=== PATIENT | female | born 1955 | race Caucasian/White ===

== ENCOUNTER 2016-10-26 23:52 | Inpatient (IN) | payer MEDICARE, OTHER ==
[~2016-10-26] VITALS: Ht 157.5 cm; Wt 103.2 kg
[~2016-10-26 23:52] MED LIST: AMLO-218 PO; ASPI-664 PO; ATOR20TA38 PO; BEN25 PO; CLOP75TA27 PO; LANT3I SC; METO-448 PO; MTF1000T PO
[2016-10-27] VITALS (11 sets, daily range): BP systolic 113–139; BP diastolic 60–73; PULSE 87–91; RESP 15–19; TEMP 99; Ht 157.5 cm; Wt 103.2 kg
--- NOTE | 2016-10-27 00:58 | ERA ---
ER Documentation Chief Complaint Date/Time DATE: 10/27/16 TIME: 00:57 Chief Complaint left chest pain radiating to left upper back,SOB,palpitation HPI The patient is a 60-year-old female, presenting to the ER because of left-sided chest pain radiating to the left upper back, dyspnea, palpitation, subjective fever, non-pleuritic cough for the last 12 days, worse for the last couple days. She denies any neck pain, chest pain with exertion of vomiting or diaphoresis, abdominal pain, vomiting, dysuria, diarrhea, complains of chronic bilateral leg swelling. She does not smoke or drink Past medical history: Hypertension, dyslipidemia, diabetes mellitus, CAD, anemia Past surgical history: Stent PCI, cholecystectomy ROS All systems reviewed and are negative except as per history of present illness. Medications Home Meds Active Scripts Levofloxacin* (Levaquin*) 750 Mg Tablet, 750 MG PO DAILY@06 for 4 Days, #4 TAB Prov:KAYEDN ABAD MD 10/28/16 Metoprolol Tartrate* (Lopressor*) 25 Mg Tab, 50 MG PO BID for 30 Days, TAB Prov:TERRY FULLER 06/24/14 Diphenhydramine Hcl* (Benadryl*) 25 Mg Cap, 25 MG PO Q6H Y for ITCHING, #14 CAP Prov:TERRY FULLER 06/24/14 Atorvastatin Calcium* (Atorvastatin Calcium*) 20 Mg Tab, 40 MG PO HS for 30 Days Prov:TERRY FULLER 06/24/14 Clopidogrel Bisulfate (Clopidogrel) 75 Mg Tab, 75 MG PO DAILY for 30 Days Prov:TERRY FULLER 06/24/14 Insulin Glargine* (Lantus*) 100 Unit/Ml Soln, 10 UNIT SC HS for 30 Days Prov:TERRY FULLER 06/24/14 Reported Medications Liraglutide (Victoza 3-Marcel) 0.6 Mg/0.1 Ml Pen.injctr, 0.6 MG SQ DAILY, SYR 10/27/16 Dexlansoprazole (Dexilant) 60 Mg Cap., 60 MG PO DAILY, #30 CAP 10/27/16 Losartan-Hydrochlorothiazide (Losartan-HCTZ) 50-12.5 Mg Tab, 1 TAB PO DAILY, TAB 10/27/16 Zolpidem Tartrate* (Zolpidem Tartrate*) 10 Mg Tablet, 10 MG PO QHS Y for INSOMNIA, #30 TAB 10/27/16 Ibuprofen* (Ibuprofen*) 800 Mg Tab, 800 MG PO TID, TAB 10/27/16 Buspirone Hcl* (Buspar*) 5 Mg Tab, 5 MG PO BID, TAB 10/27/16 Alprazolam* (Alprazolam*) 0.5 Mg Tablet, 0.5 MG PO Q8H Y for ANXIETY, TAB 10/27/16 Glipizide* (Glipizide*) 5 Mg Tablet, 5 MG PO DAILY, TAB 10/27/16 Nitroglycerin* (Nitrostat*) 0.4 Mg Tab.subl, 0.4 MG SL Q5MIN Y for CHEST PAIN, BOTTLE 10/27/16 Insulin Glargine* (Lantus*) 100 Unit/Ml Soln, 20 UNIT SC QHS, #1 VIAL 10/27/16 Aspirin* (Aspirin* EC) 81 Mg Tablet.dr, 81 MG PO DAILY, TAB 06/21/14 Amlodipine Besylate* (Norvasc*) 10 Mg Tablet, 10 MG PO DAILY, TAB 06/21/14 Metformin* (Glucophage*) 1,000 Mg Tablet, 1000 MG PO BID, TAB 06/21/14 Allergies Allergies: Coded Allergies: Penicillins (Unverified Allergy, Unknown, 10/27/16) PMhx/Soc History of Surgery: Yes (CHOLYCYSTECTOMY, CATARACT ) Anesthesia Reaction: No Hx Neurological Disorder: No Hx Respiratory Disorders: No Hx Cardiac Disorders: Yes (HTN) Hx Psychiatric Problems: No Hx Miscellaneous Medical Probl: No Hx Alcohol Use: No Hx Substance Use: No Hx Tobacco Use: No Physical Exam Vitals Vital Signs Date Time Temp Pulse Resp B/P Pulse Ox O2 Delivery O2 Flow Rate FiO2 10/27/16 01:07 99.2 97 22 132/82 97 Nasal Cannula 2.0 10/27/16 00:55 Nasal Cannula 2 10/27/16 00:06 99.0 98 18 138/92 90 Physical Exam Const: No acute distress. Head: Atraumatic. Eyes: Normal Conjunctiva. ENT: Normal External Ears, Nose and Mouth. Neck: Full range of motion. No meningismus. Resp: Left mid crackles, no wheezes Cardio: Regular rate and rhythm. Abd: Soft, non distended, normal bowel sounds, non tender. Skin: No petechiae or rashes. Back: No midline or flank tenderness. Ext: No cyanosis, or edema. Neur: Awake and alert. No focal deficit Psych: Normal Mood and Affect. Result Diagram: 10/28/16 0617 10/27/16 0100 Results 24 hrs Laboratory Tests Test 10/27/16 00:59 10/27/16 01:00 Bedside Glucose 162mg/dL White Blood Count 12.710^3/ul Red Blood Count 4.1310^6/ul Hemoglobin 11.6g/dl Hematocrit 35.2% Mean Corpuscular Volume 85.2fl Mean Corpuscular Hemoglobin 28.1pg Mean Corpuscular Hemoglobin Concent 33.0g/dl Red Cell Distribution Width 13.2% Platelet Count 94078^3/UL Mean Platelet Volume 10.3fl Neutrophils % 63.3% Lymphocytes % 22.7% Monocytes % 6.9% Eosinophils % 5.4% Basophils % 0.6% Nucleated Red Blood Cells % 0.0/100WBC Neutrophils # 8.010^3/ul Lymphocytes # 2.910^3/ul Monocytes # 0.910^3/ul Eosinophils # 0.710^3/ul Basophils # 0.110^3/ul Nucleated Red Blood Cells # 0.010^3/ul Prothrombin Time 13.3Sec Prothrombin Time Ratio 1.0 INR International Normalized Ratio 1.01 Activated Partial Thromboplast Time 28.9Sec Sodium Level 142mmol/L Potassium Level 4.2mmol/L Chloride Level 102mmol/L Carbon Dioxide Level 30mmol/L Anion Gap 14 Blood Urea Nitrogen 11mg/dl Creatinine 0.70mg/dl Glucose Level 177mg/dl Lactic Acid Level 0.9mmol/L Calcium Level 9.1mg/dl Total Bilirubin 0.3mg/dl Direct Bilirubin 0.00mg/dl Indirect Bilirubin 0.3mg/dl Aspartate Amino Transf (AST/SGOT) 14IU/L Alanine Aminotransferase (ALT/SGPT) 28IU/L Alkaline Phosphatase 118IU/L Troponin I < 0.012ng/ml B-Type Natriuretic Peptide 91PG/ML Total Protein 8.0g/dl Albumin 4.6g/dl Globulin 3.40g/dl Albumin/Globulin Ratio 1.35 Current Medications Medications (Trade) Dose Ordered Sig/Diamond Route PRN Reason Start Time Stop Time Status Last Admin Dose Admin Aspirin 325 mg 325 mg ONCE ONCE PO 10/27/16 02:30 10/27/16 02:31 DC 10/27/16 02:42 Levofloxacin/ Dextrose (Levaquin 750 Mg/ D5W 150 ml (Pmx)) 150 ml @ 100 mls/hr ONCE ONCE IVPB 10/27/16 02:30 10/27/16 03:59 DC 10/27/16 02:42 Procedures/MDM EKG: Read by emergency physician Rate/Rhythm: Normal Sinus Rhythm 98 beats/min QRS, ST, T-waves: No ST elevation, no T inversion Impression: Normal EKG [place] [id number] Radiology Main Line: [phone] DIAGNOSTIC IMAGING REPORT Patient: KHUSHBU LEMUS : 1955 Age: 60 Sex: F MR #: [id number] DOS: 10/27/16 0104 Ordering MD: DAVID BORRERO MD Location: E/R Room/Bed: PROCEDURE: XR Chest. CLINICAL INDICATION: Chest pain TECHNIQUE: AP Portable chest. COMPARISON: 06/21/2014 FINDINGS: The cardiomediastinal silhouette is normal. There is some minimal patchy opacity in the peripheral left mid chest. The osseous structures are unremarkable. IMPRESSION: Minimal patchy airspace opacity in the peripheral left mid chest likely due to mild atelectasis or pneumonia. Follow-up after appropriate medical treatment is advised. RPTAT: HIKT .Russell Cotto MD, MD Date Time Electronically viewed and signed by .Russell Cotto MD, on 10/27/2016 02:24 .T/ CC: DAVID BORRERO MD MEDICAL MAKING DECISION: The patient is a 60-year-old female with multiple cardiac risk factors, presenting with acute pneumonia, acute respiratory failure with low O2 saturation. She was treated with Levaquin IV for acute pneumonia, aspirin 325 mg p.o. for acute chest pain and supplemental oxygen with good response The differential diagnoses considered include but are not limited to acute coronary syndrome, acute myocardial infarction, pericarditis, pulmonary embolism , aortic dissection, pneumonia, pleural effusion, pneumothorax, GERD, chest wall pain. Critical Care: Time: 35 minutes excluding all billable procedures. Treatments/Evaluations: Close monitoring and treatment of unstable vital signs, cardiorespiratory, and neurologic status, while maintaining tight balance of fluid, respiratory, and cardiac interventions. Departure Diagnosis: Primary Impression: Acute respiratory failure Additional Impressions: Chest pain Pneumonia Anemia Condition: Stable Comments I discussed the findings with the patient. I discussed the patient with the on- call hospitalist Dr. Mayes who was made aware of the lab, the treatment, the patient condition. The patient is admitted to telemetry DAVID BORRERO MD Oct 27, 2016 00:58
[2016-10-27 01:22] LABS: ADD SCAN DIFF NO
[2016-10-27 01:24] LABS: BASOPHIL # 0.1 10^3/ul (0.0-0.1); BASOPHILS % 0.6 % (0.0-2.0); EOSINOPHILS # 0.7 10^3/ul (0.0-0.5); EOSINOPHILS % 5.4 % (0.0-7.0); HEMATOCRIT 35.2 % (37.0-47.0); HEMOGLOBIN 11.6 g/dl (12.0-16.0); LYMPHOCYTES # 2.9 10^3/ul (0.8-2.9); LYMPHOCYTES % 22.7 % (15.0-51.0); MEAN CORPUSCULAR HEMOGLOBIN 28.1 pg (29.0-33.0); MEAN CORPUSCULAR VOLUME 85.2 fl (82.0-101.0); MEAN PLATELET VOLUME 10.3 fl (7.4-10.4); MONOCYTE # 0.9 10^3/ul (0.3-0.9); MONOCYTES % 6.9 % (0.0-11.0); NEUTROPHILS % 63.3 % (39.0-77.0); PLATELET COUNT 409 10^3/UL (140-415); RED BLOOD COUNT 4.13 10^6/ul (4.20-5.40); RED CELL DISTRIBUTION WIDTH 13.2 % (11.5-14.5); WHITE BLOOD COUNT 12.7 10^3/ul (4.8-10.8)
[2016-10-27 01:50] LABS: INR 1.01; PROTIME 13.3 Sec (12.2-14.2)
[2016-10-27 01:51] LABS: PARTIAL THROMBOPLASTIN TIME 28.9 Sec (25.0-35.0)
[2016-10-27] MEDS ORDERED: BUS5 PO (01:52)
[2016-10-27] MEDS ORDERED: LANT3I SC (01:52)
[2016-10-27] MEDS ORDERED: LIRA0.6P2 SQ (01:52)
[2016-10-27] MEDS ORDERED: DEXL60CA2 PO (01:52)
[2016-10-27] MEDS ORDERED: GLIP5TAB13 PO (01:52)
[2016-10-27] MEDS ORDERED: IBUP800T25 PO (01:52)
[2016-10-27] MEDS ORDERED: LOSA1TAB19 PO (01:52)
[2016-10-27] MEDS ORDERED: ALPR0.5T6 PO (01:52)
[2016-10-27] MEDS ORDERED: NIT4 SL (01:52)
[2016-10-27] MEDS ORDERED: ZOLP10TA5 PO (01:52)
[2016-10-27 01:56] LABS: ALANINE AMINOTRANSFERASE 28 IU/L (13-69); ALBUMIN 4.6 g/dl (3.3-4.9); ALBUMIN/GLOBULIN RATIO 1.35; ALKALINE PHOSPHATASE 118 IU/L (42-121); ANION GAP 14 (8-16); ASPARTATE AMINO TRANSFERASE 14 IU/L (15-46); BILIRUBIN,INDIRECT 0.3 mg/dl (0-1.1); BILIRUBIN,TOTAL 0.3 mg/dl (0.2-1.3); BLOOD UREA NITROGEN 11 mg/dl (7-20); CALCIUM 9.1 mg/dl (8.4-10.2); CARBON DIOXIDE 30 mmol/L (21-31); CHLORIDE 102 mmol/L (97-110); GLUCOSE 177 mg/dl (70-220); POTASSIUM 4.2 mmol/L (3.5-5.1); SODIUM 142 mmol/L (135-144)
[2016-10-27 02:07] LABS: B-TYPE NATRIURETIC PEPTIDE 91 PG/ML (0-125)
[2016-10-27 02:08] LABS: TROPONIN-I < 0.012 ng/ml (0.00-0.12)
--- NOTE | 2016-10-27 02:25 | RADRPT ---
PROCEDURE: XR Chest. CLINICAL INDICATION: Chest pain TECHNIQUE: AP Portable chest. COMPARISON: 06/21/2014 FINDINGS: The cardiomediastinal silhouette is normal. There is some minimal patchy opacity in the peripheral left mid chest. The osseous structures are unremarkable. IMPRESSION: Minimal patchy airspace opacity in the peripheral left mid chest likely due to mild atelectasis or p neumonia. Follow-up after appropriate medical treatment is advised. RPTAT: HIKT .Russell Cotto MD, Date Time Electronically viewed and signed by .Russell Cotto MD, on 10/27/2016 02:24 .T/
[2016-10-27] MEDS ORDERED: LEVOFLOXACIN 750MG/D5W (PMX) 150 ML IVPB ONE (02:30)
[2016-10-27] MEDS ORDERED: ASPIRIN 325 MG TAB PO ONE (02:30)
[2016-10-27] MEDS ORDERED: NACL 0.9% 3 ML SYG IV SCH (03:30)
[2016-10-27] MEDS ORDERED: GLUCOSE GEL 15 GRAM TUBE PO PRN ×2 (03:30)
[2016-10-27] MEDS ORDERED: GLUCAGON 1 MG INJ IM PRN (03:30)
[2016-10-27] MEDS ORDERED: DIPHENHYDRAMINE 25 MG CAP PO PRN (03:30)
[2016-10-27] MEDS ORDERED: DEXTROSE 50% 50 ML SYRINGE IV PRN ×2 (03:30)
[2016-10-27] MEDS ORDERED: ALPRAZOLAM 0.25 MG TAB PO PRN (03:30)
[2016-10-27] MEDS ORDERED: ZOLPIDEM 5 MG TAB PO PRN (03:30)
[2016-10-27] MEDS ORDERED: GLUCOSE GEL 15 GRAM TUBE BUCCAL PRN (03:30)
[2016-10-27] MEDS: PANTOPRAZOLE (EC) 40 MG TAB PO SCH (07:46)
[2016-10-27] MEDS: INSULIN ASPART [NOVOLOG] 3 ML PEN SC SCH ×4 (07:47→21:13)
--- NOTE | 2016-10-27 08:16 | HP ---
Date/Time of Note Date/Time of Note DATE: 10/27/16 TIME: 08:03 Assessment/Plan VTE Prophylaxis VTE Prophylaxis Intervention: SCD's Assessment/Plan Chief Complaint/Hosp Course This is a 60-year-old female being admitted to the telemetry floor for: #1 chest pain: Rule out ACS versus pneumonia. At the current time trend troponins 3, echocardiogram. Consider cardiology consult. Patient is on medications to reflect possible coronary artery disease however patient is unsure of her history at this time. #2 Community acquired pneumonia: Continue IV Levaquin #3 questionable coronary artery disease: Based on patient's medication history does appear the patient has coronary artery disease we will continue current medications at this time #4 hypertension: Continue home medications #5 diabetes: Check A1c, will hold medications and put patient on insulin sliding scale #6 anxiety: Continue home Ativan #7: GERD: On Protonix #8 DVT and GI prophylaxis: SCDs, Protonix Problems: HPI/ROS Admit Date/Time Admit Date/Time Oct 27, 2016 at 02:40 Hx of Present Illness Chief complaint: Chest pain, cough This is a 60-year-old female who presents to the hospital with 1 day of chest pain. Patient states that she experiencing left-sided chest pain radiating to the back. She also states that she was short of breath. She also states has been coughing nonproductive. Reports subjective fevers. Denies any nausea vomiting or diarrhea. Allergies: Penicillin Medications: See KOKI VARELA Const: As per HPI Eyes : No pain discharge or redness or change in visual acuity ENT: No pain, sore throat, congestion, congestion, dysphagia or discharge Respiratory: As per HPI Cardiovascular: As per HPI GI : no change in appetite, abdominal pain, nausea, vomiting, diarrhea, constipation, or change in the color his stool Genitourinary: No dysuria, hematuria, flank pain , discharge or CVA tenderness Musculoskeletal: No joint pain, back pain, neck pain, restricted range of motion in neck or joints Skin: No rash, bruising or hives Neuro: No headache, dizziness, syncope, seizure, focal weakness Endocrine: No polyuria, polydipsia, temperature intolerance Psych: No hallucination, depression, anxiety or suicidal ideation PMH/Family/Social Past Medical History Hypertension diabetes, CAD ?, GERD, anxiety Past Surgical History Cholecystectomy Family History Significant Family History: no pertinent family hx Social History Alcohol Use: none Smoking Status: Never smoker Drug Use: none Exam/Review of Systems Vital Signs Vitals Vital Signs Date Time Temp Pulse Resp B/P Pulse Ox O2 Delivery O2 Flow Rate FiO2 10/27/16 07:21 98.0 92 18 129/60 92 10/27/16 05:30 Nasal Cannula 2.0 10/27/16 03:00 30 Exam Exam General: Patient is well-developed well-nourished The patient is alert oriented -3 lying comfortably in bed. HEENT: Atraumatic, normocephalic. The pupils are equal, round and reactive. Extraocular motor are intact Neck: Supple with full range of motion. No rigidity or meningismus Chest: Nontender Lungs: Clear to auscultation bilaterally no crackles rales or wheezing Heart: Normal S1-S2, Regular rhythm and rate. No murmur, S3, or S4 Abdomen: Soft , nontender, nondistended , bowel sounds are present. No guarding no rebound tenderness , No masses or organomegaly. No costovertebral temporal angle mass Extremities: Normal to inspection, no edema no cyanosis Neurologic: Normal mental status, speech normal, cranial nerves II through XII are intact, motor and sensory are intact, no focal weakness Additional Comments PROCEDURE: XR Chest. CLINICAL INDICATION: Chest pain TECHNIQUE: AP Portable chest. COMPARISON: 06/21/2014 FINDINGS: The cardiomediastinal silhouette is normal. There is some minimal patchy opacity in the peripheral left mid chest. The osseous structures are unremarkable. IMPRESSION: Minimal patchy airspace opacity in the peripheral left mid chest likely due to mild atelectasis or pneumonia. Follow-up after appropriate medical treatment is advised. RPTAT: HIKT .Russell Cotto MD, MD Date Time Electronically viewed and signed by .Russell Cotto MD, MD on 10/27/2016 02:24 Labs Result Diagram: 10/27/16 0100 10/27/16 0100 Medications Medications Current Medications Alprazolam (Xanax) 0.5 mg Q8H PRN PO ANXIETY; Start 10/27/16 at 03:30 Amlodipine Besylate (Norvasc) 10 mg DAILY PO ; Start 10/27/16 at 09:00 Aspirin (Halfprin) 81 mg DAILY PO ; Start 10/27/16 at 09:00 Atorvastatin Calcium (Lipitor) 40 mg HS PO ; Start 10/27/16 at 21:00 Buspirone HCl (Buspar) 5 mg BID PO ; Start 10/27/16 at 09:00 Clopidogrel Bisulfate (plaVIX) 75 mg DAILY PO ; Start 10/27/16 at 09:00 Diphenhydramine HCl (Benadryl) 25 mg Q6H PRN PO ITCHING; Start 10/27/16 at 03: 30 Metoprolol Tartrate (Lopressor) 50 mg BID PO ; Start 10/27/16 at 09:00 Zolpidem Tartrate (Ambien) 10 mg QHS PRN PO INSOMNIA; Start 10/27/16 at 03:30 Pantoprazole 40 mg 40 mg DAILY@06 PO Last administered on 10/27/16t 07:46; Admin Dose 40 MG; Start 10/27/16 at 06:00 Levofloxacin/ Dextrose (Levaquin 750 Mg/ D5W 150 ml (Pmx)) 150 ml @ 100 mls/hr Q24H IVPB ; Start 10/28/16 at 02:30 Miscellaneous Information 1 ea NOTE XX ; Start 10/27/16 at 03:30 Glucose (Glutose) 15 gm Q15M PRN PO DECREASED GLUCOSE; Start 10/27/16 at 03:30 Glucose (Glutose) 22.5 gm Q15M PRN PO DECREASED GLUCOSE; Start 10/27/16 at 03: 30 Dextrose (D50w Syringe) 25 ml Q15M PRN IV DECREASED GLUCOSE; Start 10/27/16 at 03:30 Dextrose (D50w Syringe) 50 ml Q15M PRN IV DECREASED GLUCOSE; Start 10/27/16 at 03:30 Glucagon (Glucagen) 1 mg Q15M PRN IM DECREASED GLUCOSE; Start 10/27/16 at 03:30 Glucose (Glutose) 15 gm Q15M PRN BUCCAL DECREASED GLUCOSE; Start 10/27/16 at 03 :30 Diagnostic Test (Pha) (Accu-Chek) 1 ea 02 XX ; Start 10/28/16 at 02:00 Losartan Potassium (Cozaar) 50 mg DAILY PO ; Start 10/27/16 at 09:00 Hydrochlorothiazide (Hydrochlorothiazide) 12.5 mg DAILY PO ; Start 10/27/16 at 09:00 LUIS NIEVES Oct 27, 2016 08:14
[2016-10-27] MEDS ORDERED: NON-FORMULARY/PATIENT OWN MED (Losartan-Hydrochlorothiazide (Losartan-HCTZ) 1 TAB) PO SCH (09:00)
[2016-10-27] MEDS: CLOPIDOGREL 75 MG TAB PO SCH (09:04)
[2016-10-27] MEDS: LOSARTAN 50 MG TAB PO SCH (09:04)
[2016-10-27] MEDS: ASPIRIN (EC) 81 MG TAB PO SCH (09:04)
[2016-10-27] MEDS: BUSPIRONE 5 MG TAB PO SCH ×2 (09:04→20:59)
[2016-10-27] MEDS: AMLODIPINE 10 MG TAB PO SCH (09:05)
[2016-10-27] MEDS: HYDROCHLOROTHIAZIDE 12.5 MG CAP PO SCH (09:05)
[2016-10-27] MEDS: METOPROLOL 25 MG TAB PO SCH ×2 (09:07→20:59)
--- NOTE | 2016-10-27 11:50 | PN ---
Date/Time of Note Date/Time of Note DATE: 10/27/16 TIME: 11:48 Assessment/Plan VTE Prophylaxis VTE Prophylaxis Intervention: SCD's Assessment/Plan Assessment/Plan 60 yo F with pmhx CAD, DM2, HTN, HL, obesity here with SOB, leukocytosis and small pulm infiltrate concerning for community acquired pneumonia #pneumonia: unclear if bacteria or viral in origin -cont levoflox, convert to PO -RVP, strep urine Ag, sputum culture -wean O2 as tolerate #chest pain: suspect 2/2 pneumonia though given CAD hx will proceed with ACS r/o -cont troponin and tele monitoring #chronic medical problems (HTN, CAD, DM) -cont home meds DM diet DVT prophx dispo pending resolution in SOB Subjective 24 Hr Interval Summary Free Text/Dictation Pt reports breathing feels a little better and chest pain subsiding Exam/Review of Systems Vital Signs Vitals Vital Signs Date Time Temp Pulse Resp B/P Pulse Ox O2 Delivery O2 Flow Rate FiO2 10/27/16 11:29 98.1 93 19 130/60 93 10/27/16 10:17 Nasal Cannula 2.0 10/27/16 03:00 30 Exam nad, sitting up in bed wearing nc lungs clear no mrg abd soft no rashes CXR and WBCs noted Results Result Diagram: 10/27/16 0100 10/27/16 0100 Results 24 hrs Laboratory Tests Test 10/27/16 00:59 10/27/16 01:00 10/27/16 04:05 10/27/16 07:47 Bedside Glucose 162 131 White Blood Count 12.7 #H Red Blood Count 4.13 L Hemoglobin 11.6 L Hematocrit 35.2 L Mean Corpuscular Volume 85.2 Mean Corpuscular Hemoglobin 28.1 L Mean Corpuscular Hemoglobin Concent 33.0 Red Cell Distribution Width 13.2 Platelet Count 409 Mean Platelet Volume 10.3 Neutrophils % 63.3 Lymphocytes % 22.7 Monocytes % 6.9 Eosinophils % 5.4 Basophils % 0.6 Nucleated Red Blood Cells % 0.0 Neutrophils # 8.0 H Lymphocytes # 2.9 Monocytes # 0.9 Eosinophils # 0.7 H Basophils # 0.1 Nucleated Red Blood Cells # 0.0 Prothrombin Time 13.3 Prothrombin Time Ratio 1.0 INR International Normalized Ratio 1.01 Activated Partial Thromboplast Time 28.9 Sodium Level 142 Potassium Level 4.2 Chloride Level 102 Carbon Dioxide Level 30 Anion Gap 14 Blood Urea Nitrogen 11 Creatinine 0.70 Glucose Level 177 Lactic Acid Level 0.9 0.7 Calcium Level 9.1 Total Bilirubin 0.3 Direct Bilirubin 0.00 Indirect Bilirubin 0.3 Aspartate Amino Transf (AST/SGOT) 14 L Alanine Aminotransferase (ALT/SGPT) 28 Alkaline Phosphatase 118 Troponin I < 0.012 B-Type Natriuretic Peptide 91 Total Protein 8.0 Albumin 4.6 Globulin 3.40 H Albumin/Globulin Ratio 1.35 Test 10/27/16 09:38 Lactic Acid Level 0.9 Medications Medications Current Medications Alprazolam (Xanax) 0.5 mg Q8H PRN PO ANXIETY; Start 10/27/16 at 03:30 Amlodipine Besylate (Norvasc) 10 mg DAILY PO Last administered on 10/27/16 09: 05; Admin Dose 10 MG; Start 10/27/16 at 09:00 Aspirin (Halfprin) 81 mg DAILY PO Last administered on 10/27/16 09:04; Admin Dose 81 MG; Start 10/27/16 at 09:00 Atorvastatin Calcium (Lipitor) 40 mg HS PO ; Start 10/27/16 at 21:00 Buspirone HCl (Buspar) 5 mg BID PO Last administered on 10/27/16 09:04; Admin Dose 5 MG; Start 10/27/16 at 09:00 Clopidogrel Bisulfate (plaVIX) 75 mg DAILY PO Last administered on 10/27/16 09 :04; Admin Dose 75 MG; Start 10/27/16 at 09:00 Diphenhydramine HCl (Benadryl) 25 mg Q6H PRN PO ITCHING; Start 10/27/16 at 03: 30 Metoprolol Tartrate (Lopressor) 50 mg BID PO Last administered on 10/27/16 09: 07; Admin Dose 50 MG; Start 10/27/16 at 09:00 Zolpidem Tartrate (Ambien) 10 mg QHS PRN PO INSOMNIA; Start 10/27/16 at 03:30 Pantoprazole 40 mg 40 mg DAILY@06 PO Last administered on 10/27/16 07:46; Admin Dose 40 MG; Start 10/27/16 at 06:00 Levofloxacin/ Dextrose (Levaquin 750 Mg/ D5W 150 ml (Pmx)) 150 ml @ 100 mls/hr Q24H IVPB ; Start 10/28/16 at 02:30 Miscellaneous Information 1 ea NOTE XX ; Start 10/27/16 at 03:30 Glucose (Glutose) 15 gm Q15M PRN PO DECREASED GLUCOSE; Start 10/27/16 at 03:30 Glucose (Glutose) 22.5 gm Q15M PRN PO DECREASED GLUCOSE; Start 10/27/16 at 03: 30 Dextrose (D50w Syringe) 25 ml Q15M PRN IV DECREASED GLUCOSE; Start 10/27/16 at 03:30 Dextrose (D50w Syringe) 50 ml Q15M PRN IV DECREASED GLUCOSE; Start 10/27/16 at 03:30 Glucagon (Glucagen) 1 mg Q15M PRN IM DECREASED GLUCOSE; Start 10/27/16 at 03:30 Glucose (Glutose) 15 gm Q15M PRN BUCCAL DECREASED GLUCOSE; Start 10/27/16 at 03 :30 Diagnostic Test (Pha) (Accu-Chek) 1 ea 02 XX ; Start 10/28/16 at 02:00 Losartan Potassium (Cozaar) 50 mg DAILY PO Last administered on 10/27/16 09:04 ; Admin Dose 50 MG; Start 10/27/16 at 09:00 Hydrochlorothiazide (Hydrochlorothiazide) 12.5 mg DAILY PO Last administered on 10/27/16 09:05; Admin Dose 12.5 MG; Start 10/27/16 at 09:00 KAYDEN ABAD MD Oct 27, 2016 11:50
[2016-10-27] MEDS: LEVOFLOXACIN 750 MG TABLET GTB SCH (12:47)
[2016-10-27 13:29] LABS: CREATINE KINASE 54 IU/L (23-200)
[2016-10-27 13:42] LABS: CK-MB 0.34 ng/ml (0.0-2.4)
[2016-10-27 13:44] LABS: TROPONIN-I < 0.012 ng/ml (0.00-0.12)
--- NOTE | 2016-10-27 14:19 | RADRPT ---
Echocardiogram Report Patient Name: KHUSHBU LEMUS Gender: Female Date: 1955 Study Date: 27-Oct-2016 Geophysics Professor: Yola Padron [facility] Location: [facility] Ref. Physician: LUIS NIEVES Quality: Good Procedures: Transthoracic echocardiogram with complete 2D, M-Mode, and doppler examination. Indications: Chest Pain. 2D/M Mode Doppler Measurement Value Normal Ranges Measurement Value Normal Ranges LVIDd 2D 4.8 3.5 - 5.6 cm AV Peak Lee 1.6 m/sec LVIDs 2D 2.8 2.1 - 4.1 cm AV Peak PG 11.0 mmHg FS 2D 41.7 % LVOT Peak Lee 1.3 m/sec LVPWd 2D 1.1 0.6 - 1.1 cm LVOT Peak PG 6.0 mmHg IVSd 2D 1.2 0.6 - 1.1 cm MV E Peak Lee 0.8 m/sec IVS/LVPW 2D 1.0 MV A Peak Lee 1.0 m/sec AoR Diam 2D 2.7 2.0 - 3.7 cm MV E/A 0.8 LA/Ao 2D 1 0 - 1 MV Decel Time 127 msec EDV 2D 107.0 cm3 MV E/A 0.8 ESV 2D 21.3 cm3 TR Peak Lee 2.5 m/sec LA Dimen 2D 3.7 2.3 - 4.0 cm TR Peak PG 25.0 mmHg RVSP 28.0 mmHg Findings Left Ventricle: Normal left ventricular systolic function. Normal left ventricular cavity size. Mild concentric left ventricular hypertrophy. Ejection fraction is visually estimated at 65 %. Tissue Doppler/Mitral Doppler indices are consistent with impaired relaxation (Stage I diastolic dysfunction). Right Ventricle: Normal right ventricular size. Normal right ventricular systolic function. Left Atrium: The left atrium is normal in size. Right Atrium: The right atrium is normal in size. Mitral Valve: Mitral valve leaflets appear mildly thickened. Mild mitral annular calcification. Trace mitral regurgitation. Aortic Valve: Normal appearance of the aortic valve. No significant aortic stenosis or insufficiency. Tricuspid Valve: Normal appearance of the tricuspid valve. Estimated peak PA systolic pressure 28 mmHg. There is trace tricuspid regurgitation. Pulmonic Valve: Normal pulmonic valve appearance. Pericardium: Normal pericardium with no significant pericardial effusion. Aorta: Normal aortic root. IVC: Normal size and normal respiratory collapse consistent with normal right atrial pressure. Conclusions 1.Normal left ventricular systolic function. Normal left ventricular cavity size. Mild concentric left ventricular hypertrophy. Ejection fraction is visually estimated at 65 %. Tissue Doppler/Mitral Doppler indices are consistent with impaired relaxation (Stage I diastolic dysfunction). 2.Normal right ventricular size. Normal right ventricular systolic function. 3.The left atrium is normal in size. 4.The right atrium is normal in size. 5.No significant valvular stenosis or regurgitation seen. 6.Normal pericardium with no significant pericardial effusion. Electronically Signed By: Gustavo Gates 27-Oct-2016 14:18:00 -0700 Patient Name: KHUSHBU LEMUS Study Date: 27-Oct-[id number]
[2016-10-27 19:51] LABS: CREATINE KINASE 48 IU/L (23-200)
[2016-10-27 20:12] LABS: TROPONIN-I < 0.012 ng/ml (0.00-0.12)
[2016-10-27] MEDS ORDERED: ATORVASTATIN 40 MG TAB PO SCH (21:00)
[2016-10-28] VITALS (8 sets, daily range): BP systolic 117–154; BP diastolic 58–72; PULSE 82–92; RESP 16–18
[2016-10-28] MEDS ORDERED: ACCUCHECK AT 2AM (Patients on SS coverage) XX SCH (02:00)
[2016-10-28] MEDS ORDERED: LEVOFLOXACIN 750MG/D5W (PMX) 150 ML IVPB SCH (02:30)
[2016-10-28] MEDS ORDERED: ACETAMINOPHEN 325 MG TAB PO PRN (03:30)
[2016-10-28] MEDS: PANTOPRAZOLE (EC) 40 MG TAB PO SCH (06:00)
[2016-10-28] MEDS: LEVOFLOXACIN 750 MG TABLET GTB SCH (06:47)
[2016-10-28 07:10] LABS: ADD SCAN DIFF NO
[2016-10-28 07:15] LABS: BASOPHIL # 0.1 10^3/ul (0.0-0.1); BASOPHILS % 0.4 % (0.0-2.0); EOSINOPHILS # 0.6 10^3/ul (0.0-0.5); EOSINOPHILS % 4.8 % (0.0-7.0); HEMATOCRIT 36.4 % (37.0-47.0); HEMOGLOBIN 11.9 g/dl (12.0-16.0); LYMPHOCYTES # 2.8 10^3/ul (0.8-2.9); LYMPHOCYTES % 24.8 % (15.0-51.0); MEAN CORPUSCULAR HEMOGLOBIN 28.1 pg (29.0-33.0); MEAN CORPUSCULAR HGB CONC 32.7 g/dl (32.0-37.0); MEAN CORPUSCULAR VOLUME 85.8 fl (82.0-101.0); MEAN PLATELET VOLUME 10.6 fl (7.4-10.4); MONOCYTE # 0.8 10^3/ul (0.3-0.9); MONOCYTES % 7.1 % (0.0-11.0); NEUTROPHILS % 61.9 % (39.0-77.0); PLATELET COUNT 456 10^3/UL (140-415); RED BLOOD COUNT 4.24 10^6/ul (4.20-5.40); WHITE BLOOD COUNT 11.4 10^3/ul (4.8-10.8)
[2016-10-28] MEDS: INSULIN ASPART [NOVOLOG] 3 ML PEN SC SCH (08:19)
[2016-10-28] MEDS: BUSPIRONE 5 MG TAB PO SCH (08:59)
[2016-10-28] MEDS: CLOPIDOGREL 75 MG TAB PO SCH (08:59)
[2016-10-28] MEDS: LOSARTAN 50 MG TAB PO SCH (08:59)
[2016-10-28] MEDS: ASPIRIN (EC) 81 MG TAB PO SCH (08:59)
[2016-10-28] MEDS: AMLODIPINE 10 MG TAB PO SCH (09:00)
[2016-10-28] MEDS: HYDROCHLOROTHIAZIDE 12.5 MG CAP PO SCH (09:00)
[2016-10-28] MEDS: METOPROLOL 25 MG TAB PO SCH (09:00)
[2016-10-28] MEDS ORDERED: LEVO750T25 PO (11:09)
--- NOTE | 2016-10-28 11:10 | PDOCDIS ---
Discharge Instructions CONDITION Patient Condition: Stable HOME CARE INSTRUCTIONS: Special Diet: DIABETIC DIET. ACTIVITY: Activity Restrictions: Slowly Increase Activity FOLLOW UP/APPOINTMENTS Appointments Return to the hospital immediately should your chest pain recur or you develop shortness of breath follow up with your regular doctor on Sunday KAYDEN ABAD MD Oct 28, 2016 11:10
--- NOTE | 2016-10-28 11:14 | DS ---
Date/Time of Note Date/Time of Note DATE: 10/28/16 TIME: 11:13 Discharge Summary Admission/Discharge Info Admit Date/Time Oct 27, 2016 at 02:40 Discharge Date/Time Final Diagnosis community acquired pneumonia Patient Condition: Stable Consults none Procedures 6.16 CXR Minimal patchy airspace opacity in the peripheral left mid chest likely due to mild atelectasis or pneumonia. Follow-up after appropriate medical treatment is advised. 6.16 TTE Conclusions 1. Normal left ventricular systolic function. Normal left ventricular cavity size. Mild concentric left ventricular hypertrophy. Ejection fraction is visually estimated at 65 %. Tissue Doppler/Mitral Doppler indices are consistent with impaired relaxation (Stage I diastolic dysfunction). 2. Normal right ventricular size. Normal right ventricular systolic function. 3. The left atrium is normal in size. 4. The right atrium is normal in size. 5. No significant valvular stenosis or regurgitation seen. 6. Normal pericardium with no significant pericardial effusion. Hx of Present Illness Chief complaint: Chest pain, cough This is a 60-year-old female who presents to the hospital with 1 day of chest pain. Patient states that she experiencing left-sided chest pain radiating to the back. She also states that she was short of breath. She also states has been coughing nonproductive. Reports subjective fevers. Denies any nausea vomiting or diarrhea. Allergies: Penicillin Medications: See [facility] Hospital Course Regarding chest discomfort, pt states this was only present while coughing. Serial troponins and TTE unremarkable. Pt started on levoflox for presumed CAP. Pt reported her breathing was at baseline by date of discharge. Pt advised to return should chest pain or breathing ability worsen pt advised to f/u with PCP Sunday pt given rx for the rest of a 5 day course of levoflox for CAP no other changes to home meds Home Meds Active Scripts Levofloxacin* (Levaquin*) 750 Mg Tablet, 750 MG PO DAILY@06 for 4 Days, #4 TAB Prov:KAYDEN ABAD MD 10/28/16 Metoprolol Tartrate* (Lopressor*) 25 Mg Tab, 50 MG PO BID for 30 Days, TAB Prov:TERRY FULLER 06/24/14 Diphenhydramine Hcl* (Benadryl*) 25 Mg Cap, 25 MG PO Q6H Y for ITCHING, #14 CAP Prov:TERRY FULLER M. 06/24/14 Atorvastatin Calcium* (Atorvastatin Calcium*) 20 Mg Tab, 40 MG PO HS for 30 Days Prov:TERRY FULLER. 06/24/14 Clopidogrel Bisulfate (Clopidogrel) 75 Mg Tab, 75 MG PO DAILY for 30 Days Prov:TERRY FULLER. 06/24/14 Insulin Glargine* (Lantus*) 100 Unit/Ml Soln, 10 UNIT SC HS for 30 Days Prov:TERRY FULLER. 06/24/14 Reported Medications Liraglutide (Victoza 3-Marcel) 0.6 Mg/0.1 Ml Pen.injctr, 0.6 MG SQ DAILY, SYR 10/27/16 Dexlansoprazole (Dexilant) 60 Mg Cap.mp, 60 MG PO DAILY, #30 CAP 10/27/16 Losartan-Hydrochlorothiazide (Losartan-HCTZ) 50-12.5 Mg Tab, 1 TAB PO DAILY, TAB 10/27/16 Zolpidem Tartrate* (Zolpidem Tartrate*) 10 Mg Tablet, 10 MG PO QHS Y for INSOMNIA, #30 TAB 10/27/16 Ibuprofen* (Ibuprofen*) 800 Mg Tab, 800 MG PO TID, TAB 10/27/16 Buspirone Hcl* (Buspar*) 5 Mg Tab, 5 MG PO BID, TAB 10/27/16 Alprazolam* (Alprazolam*) 0.5 Mg Tablet, 0.5 MG PO Q8H Y for ANXIETY, TAB 10/27/16 Glipizide* (Glipizide*) 5 Mg Tablet, 5 MG PO DAILY, TAB 10/27/16 Nitroglycerin* (Nitrostat*) 0.4 Mg Tab.subl, 0.4 MG SL Q5MIN Y for CHEST PAIN, BOTTLE 10/27/16 Insulin Glargine* (Lantus*) 100 Unit/Ml Soln, 20 UNIT SC QHS, #1 VIAL 10/27/16 Aspirin* (Aspirin* EC) 81 Mg Tablet.dr, 81 MG PO DAILY, TAB 06/21/14 Amlodipine Besylate* (Norvasc*) 10 Mg Tablet, 10 MG PO DAILY, TAB 06/21/14 Metformin* (Glucophage*) 1,000 Mg Tablet, 1000 MG PO BID, TAB 06/21/14 Primary Care Provider Not On Staff Doctor Time spent on discharge: > 30 minutes Pending Labs Laboratory Tests Test 10/27/16 12:03 10/27/16 13:03 10/27/16 17:06 10/27/16 19:10 Bedside Glucose 162mg/dL (70-220) 201mg/dL (70-220) Creatine Kinase 54IU/L (23-200) 48IU/L (23-200) Creatine Kinase Index 0.6 0.8 Creatinine Kinase MB (Mass) 0.34ng/ml (0.0-2.4) 0.40ng/ml (0.0-2.4) Troponin I < 0.012ng/ml (0.00-0.12) < 0.012ng/ml (0.00-0.12) Test 10/27/16 21:10 10/28/16 02:52 10/28/16 06:17 10/28/16 08:17 Bedside Glucose 210mg/dL (70-220) 218mg/dL (70-220) 160mg/dL (70-220) White Blood Count 11.410^3/ul (4.8-10.8) Red Blood Count 4.2410^6/ul (4.20-5.40) Hemoglobin 11.9g/dl (12.0-16.0) Hematocrit 36.4% (37.0-47.0) Mean Corpuscular Volume 85.8fl (82.0-101.0) Mean Corpuscular Hemoglobin 28.1pg (29.0-33.0) Mean Corpuscular Hemoglobin Concent 32.7g/dl (32.0-37.0) Red Cell Distribution Width 13.0% (11.5-14.5) Platelet Count 52923^3/UL (140-415) Mean Platelet Volume 10.6fl (7.4-10.4) Neutrophils % 61.9% (39.0-77.0) Lymphocytes % 24.8% (15.0-51.0) Monocytes % 7.1% (0.0-11.0) Eosinophils % 4.8% (0.0-7.0) Basophils % 0.4% (0.0-2.0) Nucleated Red Blood Cells % 0.0/100WBC (0.0-0.0) Neutrophils # 7.010^3/ul (1.6-7.5) Lymphocytes # 2.810^3/ul (0.8-2.9) Monocytes # 0.810^3/ul (0.3-0.9) Eosinophils # 0.610^3/ul (0.0-0.5) Basophils # 0.110^3/ul (0.0-0.1) Nucleated Red Blood Cells # 0.010^3/ul (0.0-0.0) KAYDEN ABAD MD Oct 28, 2016 11:14 Nucleated Red Blood Cells # 0.010^3/ul (0.0-0.0) KAYDEN ABAD MD Oct 28, 2016 11:14
== END 2016-10-28 12:10 | disposition home or self-care (01) | DRG 193 ==
LOC: E/R 23:52 → TEL 10-27 02:40
PROVIDERS: ADMIT Family Medicine; ATTEND Family Medicine
DX: J18.9 Pneumonia, unspecified organism (principal); J96.00 Acute respiratory failure, unspecified whether with hypoxia or hypercapnia; D64.9 Anemia, unspecified; E11.9 Type 2 diabetes mellitus without complications; F41.9 Anxiety disorder, unspecified; K21.9 Gastro-esophageal reflux disease without esophagitis; R07.9 Chest pain, unspecified; Z79.82 Long term (current) use of aspirin; Z79.4 Long term (current) use of insulin
CPT/HCPCS: 71010; 80053; 82550; 82553; 82962; 83605; 83880; 84484; 85025; 85610; 85730; 87040; 93005; 93306; J1815; J1956

== ENCOUNTER 2018-04-02 05:34 | Emergency (ER) | END 2018-04-02 08:03 | disposition home or self-care (01) ==